=== PATIENT | male | born 1970 | race Hispanic/Latino ===

== ENCOUNTER 2024-03-30 12:38 | Emergency (ER) | payer OTHER ==
[~2024-03-30] VITALS: Ht 170.2 cm; Wt 84.0 kg
[2024-03-30] VITALS (12 sets, daily range): BP systolic 168–224; BP diastolic 104–136
[~2024-03-30 12:38] MED LIST: NO HOME MEDS; PANCOF EXP OR; ZPAK OR
[2024-03-30] MEDS ORDERED: ORPHENADRINE CITRATE 30 MG/ML AMP IV ONE (13:15)
[2024-03-30] MEDS ORDERED: KETOROLAC TROMETHAMINE 30 MG/ML SDV IV ONE (13:15)
[2024-03-30] MEDS ORDERED: ISOVUE-300 (Iopamidol) 100 ML SDV IV ONE (13:15)
[2024-03-30 13:26] LABS: HEMATOCRIT 43.1 % (39.0-50.0); IMMATURE GRANULOCYTES 5.5 % (0.0-5.0); MEAN CELL VOLUME 76.6 fL CALC (80.0-100.0); MEAN CORPUSCULAR HGB 24.9 pG CALC (26.0-32.0); MEAN CORPUSCULAR HGB CONC 32.5 g/dL CAL (32.0-36.0); RED BLOOD COUNT 5.63 mill/uL (4.70-6.10); RED CELL DISTRI WIDTH 14.2 % (11.5-15.5)
[2024-03-30] MEDS ORDERED: HYDROmorphone HCL 2 MG/AMP IV ONE ×2 (13:30→15:30)
[2024-03-30] MEDS ORDERED: ONDANSETRON HCl 4 MG/2 ML SDV IV ONE (13:30)
[2024-03-30 13:31] LABS: MANUAL DIFFERENTIAL YES; PLATELET COUNT 108 thou/uL (130-400)
[2024-03-30 13:43] LABS: ALBUMIN 4.7 g/dL (3.2-5.0); BUN 13 mg/dL (9-20); BUN/CREATININE RATIO 17 (12-20 (CALC)); CHLORIDE 102 mmol/l (95-108); CREATININE 0.7 mg/dL (0.7-1.3); ESTIMATED GFR 110 ML/MIN (>=90 (CALC)); POTASSIUM 4.1 mmol/l (3.5-5.1); SODIUM 138 mmol/l (137-146); TOTAL PROTEIN 8.7 g/dL (6.3-8.2)
[2024-03-30 13:50] LABS: BAND 3 % (0-8)
[2024-03-30 13:51] LABS: ANISOCYTOSIS FEW; PLATELET ESTIMATE NORMAL; POLYCHROMASIA FEW
[2024-03-30 14:00] LABS: ALKALINE PHOSPHATASE 194 u/l (38-126); ANION GAP 13 (6-22 (CALC)); BILIRUBIN, TOTAL 0.6 mg/dL (0.2-1.3); CARBON DIOXIDE 27 mmol/l (22-30); SGOT/AST 238 u/l (17-59)
[2024-03-30] MEDS ORDERED: PREDNISONE20 MG PO (15:47)
[2024-03-30] MEDS ORDERED: CYCLOBENZAPRINE10 MG PO (15:47)
[2024-03-30] MEDS ORDERED: PERCOCET1 TA4 PO ×2 (15:47→17:35)
[2024-03-30] MEDS ORDERED: NAPROXEN500 MG PO (15:47)
[2024-03-30 16:29] LABS: URINE BLOOD DIPSTICK Negative (NEGATIVE); URINE COLOR Dark yellow; URINE GLUCOSE - DIPSTICK 100 mg/dL (NEGATIVE); URINE KETONE Trace mg/dL (NEGATIVE); URINE LEUK ESTERASE Negative (NEGATIVE); URINE NITRITE - DIPSTICK Negative (Negative); URINE PROTEIN - DIPSTICK 100 mg/dL (NEG-TRACE); URINE SPECIFIC GRAVITY 1.025
[2024-03-30 16:34] LABS: URINE SQUAMOUS EPITHELIAL CELL RARE EPI/hpf (0-FEW); URINE TRANSITIONAL EPI. CELLS RARE hpf
== END 2024-03-30 16:42 | disposition home or self-care (01) | DRG 605 ==
LOC: ED 12:38
PROVIDERS: Nurse Practitioner
DX: S20.219A Contusion of unspecified front wall of thorax, initial encounter (principal); V18.0XXA Pedal cycle driver injured in noncollision transport accident in nontraffic accident, initial encounter; S29.011A Strain of muscle and tendon of front wall of thorax, initial encounter
CPT/HCPCS: J1100; J1171; J2360; J2405; Q9967

== ENCOUNTER 2024-04-24 19:01 | Emergency (ER) | payer OTHER ==
[2024-04-24] VITALS (16 sets, daily range): BP systolic 132–153; BP diastolic 84–96
[~2024-04-24] VITALS: Ht 167.6 cm; Wt 81.6 kg
[~2024-04-24 19:01] MED LIST changes: +CYCLOBENZAPRINE10 MG PO; +NAPROXEN500 MG PO; +PERCOCET1 TA4 PO; +PREDNISONE20 MG PO
[2024-04-24] MEDS ORDERED: METHOCARBAMOL 1,000 MG/10 ML VIAL IV ONE (19:35)
[2024-04-24] MEDS ORDERED: HYDROmorphone HCL 2 MG/AMP IV ONE ×2 (19:35→22:40)
[2024-04-24] MEDS ORDERED: SODIUM CHLORIDE 0.9% 1,000 ML IV ONE (19:35)
[2024-04-24] MEDS ORDERED: ONDANSETRON HCl 4 MG/2 ML SDV IV ONE (19:35)
[2024-04-24 19:51] LABS: MEAN CORPUSCULAR HGB 24.7 pG CALC (26.0-32.0); MEAN CORPUSCULAR HGB CONC 32.9 g/dL CAL (32.0-36.0); RED BLOOD COUNT 3.24 mill/uL (4.70-6.10); RED CELL DISTRI WIDTH 13.9 % (11.5-15.5)
[2024-04-24 19:58] LABS: ALBUMIN 3.8 g/dL (3.2-5.0); ALKALINE PHOSPHATASE 188 u/l (38-126); ANION GAP 11 (6-22 (CALC)); BUN 14 mg/dL (9-20); BUN/CREATININE RATIO 14 (12-20 (CALC)); CARBON DIOXIDE 27 mmol/l (22-30); CHLORIDE 101 mmol/l (95-108); ESTIMATED GFR 90 ML/MIN (>=90 (CALC)); POTASSIUM 4.2 mmol/l (3.5-5.1); SGOT/AST 217 u/l (17-59); SODIUM 135 mmol/l (137-146); TOTAL PROTEIN 7.5 g/dL (6.3-8.2)
[2024-04-24 20:07] LABS: BILIRUBIN, TOTAL 1.1 mg/dL (0.2-1.3)
[2024-04-24 20:11] LABS: PROTHROMBIN TIME 11.2 SECONDS (9.0-12.5)
[2024-04-24 20:15] LABS: HEMATOCRIT 24.3 % (39.0-50.0)
[2024-04-24 20:16] LABS: IMMATURE GRANULOCYTES 1.2 % (0.0-5.0); PLATELET COUNT 10 thou/uL (130-400)
[2024-04-24 20:17] LABS: MANUAL DIFFERENTIAL YES
[2024-04-24 20:31] LABS: BAND 1 % (0-8); IMMATURE CELLS 36 %; NUCLEATED RED BLOOD CELL 1 /100WBC (0-1)
[2024-04-24 20:32] LABS: PLATELET ESTIMATE MARKED DECREASE
[2024-04-24 22:30] LABS: URINE BLOOD DIPSTICK Negative (NEGATIVE); URINE CLARITY Clear; URINE GLUCOSE - DIPSTICK Negative (NEGATIVE); URINE KETONE Negative (NEGATIVE); URINE LEUK ESTERASE Negative (Negative); URINE NITRITE - DIPSTICK Negative (Negative); URINE PH 5.5 (4.5-8.0); URINE PROTEIN - DIPSTICK 30 mg/dL (NEG-TRACE); URINE UROBILINOGEN - DIPSTICK >=8.0 E.U./dL (0.2)
[2024-04-24 22:34] LABS: URINE COLOR Yellow
[2024-04-24 22:44] LABS: URINE BACTERIA RARE hpf; URINE MUCUS FEW hpf (NONE-FEW); URINE SQUAMOUS EPITHELIAL CELL RARE EPI/hpf (0-FEW)
[2024-04-24 22:45] LABS: URINE HYALINE CAST FEW lpf (NONE-RARE)
== END 2024-04-24 23:20 | disposition short-term general hospital (02) | DRG 813 ==
LOC: ED 19:01
PROVIDERS: Emergency Medicine
DX: D69.6 Thrombocytopenia, unspecified (principal); D64.9 Anemia, unspecified; D72.829 Elevated white blood cell count, unspecified; R16.1 Splenomegaly, not elsewhere classified; M54.50 Low back pain, unspecified; Z20.822 Contact with and (suspected) exposure to COVID-19
CPT/HCPCS: J1171; J2405; J2800; Q9967

== ENCOUNTER 2024-06-25 18:54 | Emergency (ER) | payer OTHER ==
[~2024-06-25] VITALS: Ht 167.6 cm; Wt 75.0 kg
[2024-06-25] MEDS ORDERED: VANCOMYCIN HCL 1 GM in SODIUM CHLORIDE 0.9% 250 ML IV STA (19:17)
[2024-06-25] MEDS ORDERED: AZTREONAM 1 GM in SODIUM CHLORIDE 0.9% 50 ML IV STA (19:17)
[2024-06-25] MEDS ORDERED: ACETAMINOPHEN 500 MG TAB PO ONE (19:20)
[2024-06-25] MEDS ORDERED: SODIUM CHLORIDE 0.9% 1,000 ML BAG IV ONE (19:20)
[2024-06-25] MEDS ORDERED: PROMETHAZINE HCL 25 MG/ML AMP IV ONE (19:25)
[2024-06-25] MEDS ORDERED: HYDROmorphone HCL 2 MG/AMP IV ONE (19:25)
[2024-06-25] MEDS ORDERED: KETOROLAC TROMETHAMINE 30 MG/ML SDV IV ONE (19:25)
[2024-06-25 19:53] LABS: BASO% 0.3 % (0-3); EOS% 1.3 % (0-8); IMMATURE GRANULOCYTES 1.5 % (0.0-5.0); LYMPH% 7.3 % (15-41); MEAN CORPUSCULAR HGB 26.3 pG CALC (26.0-32.0); MEAN CORPUSCULAR HGB CONC 31.8 g/dL CAL (32.0-36.0); MONO% 12.1 % (2-13); NEUT# 9.2 thou/uL (1.82-7.42); NEUT% 77.5 % (42-76); RED BLOOD COUNT 4.34 mill/uL (4.70-6.10); RED CELL DISTRI WIDTH 15.8 % (11.5-15.5)
[2024-06-25 19:54] LABS: HEMATOCRIT 35.8 % (39.0-50.0); HEMOGLOBIN 11.4 g/dl (14.0-18.0); MEAN CELL VOLUME 82.5 fL CALC (80.0-100.0)
[2024-06-25 20:04] LABS: ALBUMIN 4.1 g/dL (3.2-5.0); BILIRUBIN, TOTAL 0.8 mg/dL (0.2-1.3); CREATININE 0.6 mg/dL (0.7-1.3); POTASSIUM 4.2 mmol/l (3.5-5.1); TOTAL PROTEIN 7.3 g/dL (6.3-8.2)
[2024-06-25 20:12] LABS: ACT PARTIAL THROMBO TIME 28.1 SECONDS (20.0-32.5)
[2024-06-25 20:13] LABS: PROTHROMBIN TIME 11.2 SECONDS (9.0-12.5)
[2024-06-25 20:40] VITALS: BP 133/84
[2024-06-25 21:00] VITALS: BP 136/74
[2024-06-25 21:47] LABS: URINE BILIRUBIN - DIPSTICK Negative (NEGATIVE); URINE BLOOD DIPSTICK Negative (NEGATIVE); URINE GLUCOSE - DIPSTICK Negative (NEGATIVE); URINE KETONE Negative (NEGATIVE); URINE LEUK ESTERASE Negative (NEGATIVE); URINE NITRITE - DIPSTICK Negative (Negative); URINE PROTEIN - DIPSTICK Negative (NEG-TRACE); URINE SPECIFIC GRAVITY <=1.005; URINE UROBILINOGEN - DIPSTICK 0.2 E.U./dL (0.2)
[2024-06-25 21:48] LABS: URINE COLOR Yellow
[2024-06-25 22:01] VITALS: BP 127/79
[2024-06-25 22:55] VITALS: BP 127/79
== END 2024-06-25 22:55 | disposition home or self-care (01) | DRG 866 ==
LOC: ED 18:54
PROVIDERS: Family Medicine
DX: B34.9 Viral infection, unspecified (principal); C95.90 Leukemia, unspecified not having achieved remission; Z20.822 Contact with and (suspected) exposure to COVID-19
CPT/HCPCS: J0457; J1171; J2550; J3370